=== PATIENT | female | born 1965 | race Caucasian/White ===

== ENCOUNTER 2017-08-02 19:09 | Emergency (ER) | payer BC, MEDICAID ==
[~2017-08-02] VITALS: Ht 154.9 cm; Wt 44.0 kg
[2017-08-02 19:18] VITALS: BP_SYST 115
--- NOTE | 2017-08-02 19:20 | NUR ---
Patient to ER bed 08 to gown for evaluation. Side rails up.
--- NOTE | 2017-08-02 19:22 | NUR ---
Pt brought by self,A&Ox4, pt states she feels different, Pt states her veins are getting bigger, she feels a weird smell on her body and c/o swelling of legs and distended stomach , pt denies pain, denies chest pain, respirations are even and unlabored, pt is afebrile, no evident swelling noted at this time, no bleeding noted, cap refill <3.
--- NOTE | 2017-08-02 19:25 | NUR ---
Pt states she urinated this morning ,pt c/o abdominal distention, no evident distention noted at this time
--- NOTE | 2017-08-02 19:45 | NUR ---
Dr Mahoney at bedside examining patient
--- NOTE | 2017-08-02 19:58 | NUR ---
Pt states she is unable to urinate at this time, Pt refuses urinary catheter, aware.
--- NOTE | 2017-08-02 19:59 | NUR ---
Bladder scan indicates 0 ml of urine, MD aware.
--- NOTE | 2017-08-02 20:00 | NUR ---
Per lab staff patient refused to continue with lab draw,only one purple tube was obtained , aware.
[2017-08-02 20:26] LABS: CALCIUM 8.7 mg/dL (8.4-11.0); CREATININE 0.82 mg/dL (0.55-1.30); POTASSIUM 3.5 mmol/L (3.5-5.1)
[2017-08-02 20:33] LABS: ALBUMIN 3.9 g/dL (3.4-4.8); TOTAL BILIRUBIN 0.4 mg/dL (0.0-1.0)
--- NOTE | 2017-08-02 21:02 | NUR ---
Patient given written and verbal discharge instructions and verbalizes understanding. ER MD discussed with patient the results and treatment provided. Patient in stable condition. ID arm band removed. IV catheter removed intact and dressing applied, no active bleeding. No prescriptions given. Patient educated on pain management and to follow up with PMD. Pain Scale 0/10 . Opportunity for questions provided and answered. Medication side effect fact sheet provided.
== END 2017-08-02 21:01 | disposition home or self-care (01) ==
LOC: SED 19:09
DX: Z00.00 Encounter for general adult medical examination without abnormal findings (principal); F43.9 Reaction to severe stress, unspecified; R03.0 Elevated blood-pressure reading, without diagnosis of hypertension; Z88.1 Allergy status to other antibiotic agents; Z90.89 Acquired absence of other organs
CPT/HCPCS: 36415; 80053; 99283; 99284